=== PATIENT | female | born 1965 | race Caucasian/White ===

== ENCOUNTER 2025-07-23 06:20 | Day surgery (SDC) | payer MEDICARE, OTHER, SELFPAY | END 2025-07-23 11:01 | disposition home or self-care (01) | LOC: GI 06:20 | PROVIDERS: ATTENDING PHYSICIAN Internal Medicine Gastroenterology; FAMILY PHYSICIAN Family Medicine | DX: K57.30 Diverticulosis of large intestine without perforation or abscess without bleeding (principal); K64.8 Other hemorrhoids; Z83.719 Family history of colon polyps, unspecified | CPT/HCPCS: G0105 ==